=== PATIENT | male | born 1990 | race Asian ===

== ENCOUNTER 2021-11-13 20:04 | Emergency (ER) | payer BC ==
[~2021-11-13] VITALS: Ht 177.8 cm; Wt 74.8 kg
[2021-11-13 20:10] VITALS: BP 127/91
--- NOTE | 2021-11-13 20:13 | NUR ---
PT JUAN M YADAV. TAKEN TO CHAIR
[2021-11-13 20:27] VITALS: BP 127/91
--- NOTE | 2021-11-13 20:32 | NUR ---
Patient being evaluated by physician at bedside.
--- NOTE | 2021-11-13 20:39 | NUR ---
IV removed, catheter intact and site benign. Applied folded 4x4 gauze and tape to stop bleeding.
--- NOTE | 2021-11-13 20:40 | NUR ---
Patient discharged with v/s stable. Written and verbal after care instructions given and explained. Patient verbalized understanding. Ambulatory with steady gait. All questions addressed prior to discharge. Advised to follow up with PMD.
== END 2021-11-13 20:40 | disposition home or self-care (01) ==
LOC: MED 20:04
DX: E86.0 Dehydration (principal); R06.02 Shortness of breath; R42 Dizziness and giddiness; F12.90 Cannabis use, unspecified, uncomplicated
CPT/HCPCS: 99283